=== PATIENT | male | born 1990 | race African-American/Black ===

== ENCOUNTER 2016-11-17 08:38 | Emergency (ER) | payer SELFPAY ==
[~2016-11-17] VITALS: Ht 160 cm; Wt 54.4 kg
[~2016-11-17 08:38] MED LIST: ALBUTEROL SULF8.5 GM INH; MEDROL DOSEPAK4 MG ORAL
[2016-11-17] MEDS ORDERED: NKM (08:43)
[2016-11-17 08:55] VITALS: BP 103/58
--- NOTE | 2016-11-17 08:55 | Emergency Room Report ---
History of Present Illness General Chief Complaint: Back Pain-No Injury Source: Patient Present Illness HPI Presents with lumbar pain. He injured it playing basketball 3 months ago. He states it's worse when he wakes up in the morning. The states is a 10/10 at that time. It gets better during the day. He's not sure if it's related to his bed or the work shoes. He denies any fevers, numbness, incontinence of weakness. More on the right-hand side. Doesn't radiate down into the leg at all. Denies any dysuria. Patient was seen by employee health was sent to the emergency department. He was given Motrin 200 mg before coming down about a half an hour before being here. Allergies: Coded Allergies: No Known Allergies (Unverified , 07/09/15) Patient History Past Medical History: see triage record Social History: Denies: smoking Social History Narrative works at [employer] Reviewed Nursing Documentation: PMH: Agreed, PSxH: Agreed Nursing Documentation-PMH Past Medical History: No History, Except For Review of Systems Constitutional: Denies: fever Respiratory: Denies: shortness of breath Cardiovascular: Denies: chest pain Gastrointestinal: Denies: abdominal pain Genitourinary: Reports: see HPI Musculoskeletal: Reports: see HPI Skin: Denies: rash Psychiatric: Denies: depressed feelings Neurological: Reports: see HPI Hematologic/Lymphatic: Denies: easy bleeding All Other Systems: negative except mentioned in HPI Physical Exam Vital Signs Date Time Temp Pulse Resp B/P Pulse Ox O2 Delivery O2 Flow Rate FiO2 11/17/16 08:40 97.5 75 18 103/58 98 Room Air Sp02 EP Interpretation: reviewed, normal General Appearance: well appearing, no apparent distress Head: normocephalic, atraumatic Eyes: bilateral eye normal inspection ENT: hearing grossly normal, normal voice, moist mucus membranes Neck: full range of motion, supple Respiratory: no respiratory distress, speaking full sentences Musculoskeletal: gait/station normal, normal range of motion, no calf tenderness, other - R paraspinous tenderness, SLR negative except for pain increased in lumbar area Neurologic: alert, motor strength/tone normal, DTRs symmetric, sensory intact, normal gait Psychiatric: mood/affect normal Reflexes: 2+ knee (R), 2+ knee (L), 2+ ankle (R), 2+ ankle (L) Skin: no rash Medical Decision Making Diagnostic Impression: Primary Impression: Back pain Qualified Codes: M54.5 - Low back pain ER Course Patient presents with back pain from injury sustained 3 months ago. DDx: muscle spasm, strain, herniated disk, underlying bony deformity. No evidence of sciatica. Xrays will be obtained. Xrays with spina bifida occulta and min displacement of vertebral bodies. Improved with treatment. Discussed xrays. Patient stable for outpatient observation and treatment. Laboratory Tests Test 11/17/16 08:56 Urine Color Yellow Urine Appearance Clear Urine pH 6 (4.5-8.0) Urine Specific [place] 1.025 (1.005-1.035) Urine Protein 2+ (NEGATIVE) H Urine Glucose (UA) Negative (NEGATIVE) Urine Ketones 1+ (NEGATIVE) H Urine Occult Blood Negative (NEGATIVE) Urine Nitrite Negative (NEGATIVE) Urine Bilirubin 1+ (NEGATIVE) H Urine Ictotest Negative Urine Urobilinogen 4 MG/DL (0.0-1.0) H Urine Leukocyte Esterase 1+ (NEGATIVE) H Urine RBC 0-2 /HPF (0 - 0) H Urine WBC 2-4 /HPF (0 - 0) Urine Squamous Epithelial Cells Occasional /LPF Urine Bacteria Few /HPF (NONE) Urine Mucus Moderate /LPF (NONE/OCC) H Last Vital Signs Date Time Temp Pulse Resp B/P Pulse Ox O2 Delivery O2 Flow Rate FiO2 11/17/16 10:34 97.5 72 18 108/60 98 Room Air Status: improved Disposition: HOME, SELF-CARE Condition: Improved Scripts Methocarbamol* (ROBAXIN*) 500 Mg Tablet 500 MG PO TID, #10 TAB 0 Refills Prov: Mello Turner M.D. 11/17/16 Ibuprofen* (MOTRIN*) 600 Mg Tablet 600 MG ORAL Q6H Y for For Pain, #20 TAB Prov: Mello Turner M.D. 11/17/16 Mello Turner M.D. Nov 17, 2016 08:55
[2016-11-17 09:19] LABS: APPEARANCE,URINE CLEAR; KETONES,URINE 1+ (NEGATIVE); LEUKOCYTE ESTERASE ,URINE 1+ (NEGATIVE); NITRITE,URINE NEGATIVE (NEGATIVE); PH,URINE 6 (4.5-8.0); PROTEIN,URINE 2+ (NEGATIVE); UROBILINOGEN,URINE 4 MG/DL (0.0-1.0)
[2016-11-17 09:27] LABS: BACTERIA,URINE FEW /HPF; MUCUS,URINE MODERATE /LPF (NONE/OCC); RBC,URINE 0-2 /HPF (0 - 0); SQUAMOUS EPITHELIAL CELL,UR OCCASIONAL /LPF (NONE/OCC)
[2016-11-17 09:32] LABS: ICTOTEST NEGATIVE
[2016-11-17] MEDS ORDERED: IBUPROFEN600 MG ORAL (10:02)
[2016-11-17] MEDS ORDERED: ROBAXIN500 MG PO (10:02)
[2016-11-17 10:32] VITALS: BP 108/60
[2016-11-17 10:34] VITALS: BP 108/60
--- NOTE | 2016-11-17 12:23 | Diagnostic Imaging Report ---
Indication: PAIN Technique: 3 views of the lumbar spine Comparison: None Findings:Bony alignment is normal. Vertebral body heights are preserved. Disc spaces are preserved. Pedicles are intact. 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 Sacroiliac joint spaces are preserved. Sacral arches are preserved Impression:No acute bony trauma This agrees with the preliminary interpretation provided by the emergency room physician
== END 2016-11-17 10:35 | disposition home or self-care (01) ==
LOC: EMR 08:58
DX: M54.5 Low back pain (principal)
CPT/HCPCS: 72020; 81003; 99283